=== PATIENT | male | born 1955 | race Caucasian/White ===

== ENCOUNTER 2021-03-31 22:04 | Emergency (ER) | payer BC ==
[~2021-03-31] VITALS: Ht 195.6 cm; Wt 129.3 kg
[2021-03-31 23:07] VITALS: BP 147/92
== END 2021-03-31 23:08 | disposition home or self-care (01) ==
LOC: M.ERS 22:04
DX: Z20.822 Contact with and (suspected) exposure to COVID-19 (principal)

== ENCOUNTER 2021-04-07 20:44 | Emergency (ER) | payer BC ==
[~2021-04-07] VITALS: Ht 195.6 cm; Wt 108.9 kg
[2021-04-07 21:09] VITALS: BP 176/74
== END 2021-04-07 21:56 | disposition home or self-care (01) ==
LOC: M.ERS 20:44
DX: S91.111A Laceration without foreign body of right great toe without damage to nail, initial encounter (principal); W26.8XXA Contact with other sharp object(s), not elsewhere classified, initial encounter; Y93.89 Activity, other specified; Y92.89 Other specified places as the place of occurrence of the external cause; Y99.8 Other external cause status

== ENCOUNTER 2021-04-10 17:22 | Emergency (ER) | payer BC ==
[~2021-04-10] VITALS: Ht 195.6 cm; Wt 128.4 kg
[2021-04-10] MEDS ORDERED: CLINDAMYCIN HC300 MG PO (18:46)
[2021-04-10] MEDS ORDERED: MUPIROCIN22 GM TOP (18:46)
[2021-04-10 19:26] VITALS: BP 114/89
== END 2021-04-10 19:26 | disposition home or self-care (01) ==
LOC: M.ERS 17:22
DX: S90.811A Abrasion, right foot, initial encounter (principal); Z20.822 Contact with and (suspected) exposure to COVID-19; E11.9 Type 2 diabetes mellitus without complications; X58.XXXA Exposure to other specified factors, initial encounter; Y93.E8 Activity, other personal hygiene; Y92.89 Other specified places as the place of occurrence of the external cause; Y99.8 Other external cause status